=== PATIENT | female | born 1950 ===

== ENCOUNTER 2018-01-27 13:33 | Emergency (ER) | payer MEDICARE, OTHER ==
[2018-01-27 13:41] VITALS: TEMP 98.1
[2018-01-27] MEDS ORDERED: Sodium Chloride 0.9% 1,000 ML IV STA (13:51)
--- NOTE | 2018-01-27 14:11 | C.PDOC ---
History Of Present Illness 67 y/o female with a PMHx of kidney stones presents to the ED complaining of left lower back pain and LLQ abdominal pain since yesterday. Associated with nausea and vomiting last night. Patient reports the pain improved after taking Motrin last night, but then recurred this morning. Also complains of some dysuria. Otherwise she denies any fevers, chills, hematuria, or other complaints. Patient reports current symptoms are similar to prior episode of kidney stones over the summer. Time Seen by Provider: 01/27/18 13:43 Chief Complaint (Nursing): Abdominal Pain History Per: Patient History/Exam Limitations: no limitations Onset/Duration Of Symptoms: Days (x2) Current Symptoms Are (Timing): Still Present Location Of Pain/Discomfort: LLQ Radiation Of Pain To:: Flank Associated Symptoms: Nausea, Vomiting Past Medical History Reviewed: Historical Data, Nursing Documentation, Vital Signs Vital Signs: Last Vital Signs Temp 98.1 F 01/27/18 13:36 Pulse 88 01/27/18 13:36 Resp 19 01/27/18 13:36 BP 187/106 H 01/27/18 13:36 Pulse Ox 97 01/27/18 13:36 - Medical History PMH: HTN, Kidney Stones Surgical History: Family History: States: No Known Family Hx - Social History Hx Alcohol Use: No Hx Substance Use: No - Immunization History Hx Tetanus Toxoid Vaccination: No Hx Influenza Vaccination: Yes Hx Pneumococcal Vaccination: No Review Of Systems Except As Marked, All Systems Reviewed And Found Negative. Constitutional: Negative for: Fever, Chills Gastrointestinal: Positive for: Nausea, Vomiting, Abdominal Pain (Left-sided). Negative for: Diarrhea, Hematemesis Genitourinary: Positive for: Dysuria. Negative for: Frequency, Hematuria Musculoskeletal: Positive for: Back Pain (Left lower) Neurological: Negative for: Weakness, Numbness, Incoordination Physical Exam - Physical Exam Additional Physical Exam Comments: Constitutional: No acute distress. Head: Normocephalic. Atraumatic. Eyes: PERRL. ENT: Moist mucous membranes. Neck: Supple. Cardiovascular: Regular rate. Radial pulse 2+ bilaterally. Chest: No tenderness. Respiratory: Clear to auscultation bilaterally. GI: Soft. Nontender. Nondistended. Back: No CVA tenderness. Musculoskeletal: No tenderness or swelling of extremities. Skin: No rash. Neurologic: Alert, no focal deficit. ED Course And Treatment - Laboratory Results Result Diagrams: 01/27/18 14:09 01/27/18 14:09 O2 Sat by Pulse Oximetry: 97 (RA) Pulse Ox Interpretation: Normal Medical Decision Making Medical Decision Making: Initial Plan: --CMP --Lipase --CBC --UA --Urine culture --CT Abd/Pelvis --1 L of IV fluids --15 mg IV Toradol --[address] A/P resulted: Accession No. : [id number] Patient Name / ID : ROLANDA HERNANDEZ / [id number] Exam Date : 01/27/2018 14:38:50 ( Approved ) Study Comment : Sex / Age : F / 67Y Creator : Jung Perkins Dictator : Noe Vora MD Channel Machine Operator : Professor Of Surgery : Noe Vora MD Approver2 : Report Date : 01/27/2018 14:47:41 My Comment : This report is currently processing and HAS NOT BEEN OFFICIALLY SIGNED BY THE PHYSICIAN - ESTIMATED TIME OF APPROVAL IS 01/27/2018 15:43. Date of service: 01/27/2018 PROCEDURE: CT Abdomen and Pelvis. HISTORY: Left flank pain COMPARISON: No prior study available for comparison. TECHNIQUE: Contiguous helical/transaxial images of the abdomen and pelvis performed without oral or intravenous contrast material. Coronal and Sagittal reformats generated. Radiation dose: Total exam DLP = 297.97 mGy-cm. This CT exam was performed using one or more of the following dose reduction techniques: Automated exposure control, adjustment of the mA and/or kV according to patient size, and/or use of iterative reconstruction technique. FINDINGS: LOWER THORAX: Mild fibrosis/scarring seen both lung bases including the lingular and middle lobe regions. No evidence of effusion or basilar pneumothorax. Heart size is within range of normal. No significant pericardial effusion. LIVER: Liver exhibits normal size and attenuation pattern. No obvious hepatic mass collection or calcification seen on this noncontrast exam. No gross lesion or ductal dilatation. GALLBLADDER AND BILE DUCTS: The gallbladder appears incompletely distended. No evidence of intraluminal gallbladder calculi.. PANCREAS: Unremarkable. No mass. No ductal dilatation. SPLEEN: Exhibits normal size and attenuation without masses collections or calcifications.. ADRENALS: No adrenal lesions. KIDNEYS AND URETERS: Mild left-sided hydronephrosis with dilatation of the left renal collecting system, left renal pelvis and most of the left ureter from recently passed calculus that is located in the urinary bladder lumen or within the intramural portion of the left UVJ. Mid. There are some mild infiltration changes also s een in the left perinephric fat. No additional calculi. No evidence of right- sided hydronephrosis. BLADDER: Urinary bladder is incompletely distended which in part accounts for thick- walled appearance however correlation with urinalysis recommended to exclude cystitis. There is a tiny approximately 3.3 mm calculus within the left posterior inferior margin of the urinary bladder likely within the bladder lumen from recently passed left-sided calculus.. REPRODUCTIVE: The uterus appears unremarkable. APPENDIX: Normal appendix best seen on axial image series 3 image # [id number]. BOWEL: Evaluation of the bowel is limited due to the lack of oral contrast material. Stomach is incompletely distended. Visualized loops of small bowel exhibit normal contour and caliber. No evidence of acute mechanical small bowel obstruction. Stool and air seen throughout the large bowel. No evidence of definitive mural wall thickening. PERITONEUM: Unremarkable. No fluid collection. No free air. LYMPH NODES: Unremarkable. No enlarged lymph nodes. VASCULATURE: Unremarkable. No aortic aneurysm. No aortic atherosclerotic calcification or mural plaque present. BONES: Mild multilevel degenerative spondylosis of the lower thoracic and lumbar spine. Small central and bilateral disc bulges noted at the L4-L5 and L5-S1 levels.. OTHER FINDINGS: None. IMPRESSION: Recently passed approximately 3 mm calculus located either in the left posterior inferior urinary bladder lumen or within the intramural portion of the left UVJ with mild-moderate residual left-sided hydronephrosis. Small amount of infiltration changes seen in the left perinephric fat. Urinary bladder wall thickening likely due to incomplete distention however correlation with urinalysis recommended to exclude cystitis. Disposition - Disposition Referrals: Yasir Rodrigez Jr., MD [Staff Provider] - Disposition: HOME/ ROUTINE Disposition Time: 15:59 Condition: STABLE Prescriptions: Ciprofloxacin [Cipro] 500 mg PO BID #14 tab Ibuprofen [Motrin] 1 tab PO Q6 #30 tab Ondansetron ODT [Zofran ODT] 4 mg PO Q8 #12 odt Instructions: Kidney Stones in Adults Forms: [facility] ([place]ish) - Clinical Impression Clinical Impression: Kidney stone - Scribe Statement The provider has reviewed the documentation as recorded by the Rajwinder Brown Provider Attestation: All medical record entries made by the Rajwinder were at my direction and personally dictated by me. I have reviewed the chart and agree that the record accurately reflects my personal performance of the history, physical exam, medical decision making, and the department course for this patient. I have also personally directed, reviewed, and agree with the discharge instructions and disposition.
[2018-01-27 14:13] LABS: BASO # 0.1 K/uL (0.0-0.2); BASO % 0.7 % (0.0-2.0); EOS % 0.1 % (0.0-4.0); HEMOGLOBIN 14.5 g/dL (11.0-16.0); LYMPH # 2.1 K/uL (1.0-4.3); LYMPH % 19.2 % (20.0-40.0); MEAN CELL VOLUME 90.5 fL (81.0-99.0); MEAN CORPUSCULAR HEMOGLOBIN 31.5 pg (27.0-31.0); MEAN CORPUSCULAR HGB CONC 34.8 g/dL (33.0-37.0); MEAN PLATELET VOLUME 7.4 fL (7.2-11.7); MONO # 0.6 K/uL (0.0-0.8); MONO % 5.9 % (0.0-10.0); NEUT # 8.2 K/uL (1.8-7.0); NEUT % 74.1 % (50.0-75.0); RBC 4.59 Mil/uL (3.80-5.20); RED CELL DISTRIBUTION WIDTH 13.2 % (11.5-14.5); WHITE BLOOD COUNT 11.1 K/uL (4.8-10.8)
[2018-01-27] MEDS ORDERED: Sodium Chloride 0.9% 1,000 ML ONE (14:16)
[2018-01-27 14:35] LABS: ALB/GLOB RATIO 1.4 (1.0-2.1); ALBUMIN 4.8 g/dL (3.5-5.0); ALT/SGPT 24 U/L (9-52); AST/SGOT 27 U/L (14-36); BLOOD UREA NITROGEN 23 mg/dL (7-17); CALCIUM 9.4 mg/dl (8.6-10.4); GFR NON-AFRICAN AMERICAN > 60; LIPASE 321 U/L (23-300)
[2018-01-27 14:39] LABS: SQUAMOUS EPITHIAL 1 /hpf (0-5); URINE BILIRUBIN NEGATIVE (NEGATIVE); URINE BLOOD 3+ (NEGATIVE); URINE CLARITY Clear (Clear); URINE COLOR Yellow (YELLOW); URINE GLUCOSE (UA) NORMAL (Normal); URINE LEUKOCYTE ESTERASE 1+ Leu/uL (Negative); URINE PROTEIN 1+ mg/dL (NEGATIVE); URINE UROBILINOGEN NORMAL mg/dL (0.2-1.0)
--- NOTE | 2018-01-27 15:41 | CT ---
Date of service: 01/27/2018 PROCEDURE: CT Abdomen and Pelvis. HISTORY: Left flank pain COMPARISON: No prior study available for comparison. TECHNIQUE: Contiguous helical/transaxial images of the abdomen and pelvis performed without oral or intravenous contrast material. Coronal and Sagittal reformats generated. Radiation dose: Total exam DLP = 297.97 mGy-cm. This CT exam was performed using one or more of the following dose reduction techniques: Automated exposure control, adjustment of the mA and/or kV according to patient size, and/or use of iterative reconstruction technique. FINDINGS: LOWER THORAX: Mild fibrosis/scarring seen both lung bases including the lingular and middle lobe regions. No evidence of effusion or basilar pneumothorax. Heart size is within range of normal. No significant pericardial effusion. LIVER: Liver exhibits normal size and attenuation pattern. No obvious hepatic mass collection or calcification seen on this noncontrast exam. No gross lesion or ductal dilatation. GALLBLADDER AND BILE DUCTS: The gallbladder appears incompletely distended. No evidence of intraluminal gallbladder calculi.. PANCREAS: Unremarkable. No mass. No ductal dilatation. SPLEEN: Exhibits normal size and attenuation without masses collections or calcifications.. ADRENALS: No adrenal lesions. KIDNEYS AND URETERS: Mild left-sided hydronephrosis with dilatation of the left renal collecting system, left renal pelvis and most of the left ureter from recently passed calculus that is located in the urinary bladder lumen or within the intramural portion of the left UVJ. Mid. There are some mild infiltration changes also seen in the left perinephric fat. No additional calculi. No evidence of right-sided hydronephrosis. BLADDER: Urinary bladder is incompletely distended which in part accounts for thick-walled appearance however correlation with urinalysis recommended to exclude cystitis. There is a tiny approximately 3.3 mm calculus within the left posterior inferior margin of the urinary bladder likely within the bladder lumen from recently passed left-sided calculus.. REPRODUCTIVE: The uterus appears unremarkable. APPENDIX: Normal appendix best seen on axial image series 3 image # [id number]. BOWEL: Evaluation of the bowel is limited due to the lack of oral contrast material. Stomach is incompletely distended. Visualized loops of small bowel exhibit normal contour and caliber. No evidence of acute mechanical small bowel obstruction. Stool and air seen throughout the large bowel. No evidence of definitive mural wall thickening. PERITONEUM: Unremarkable. No fluid collection. No free air. LYMPH NODES: Unremarkable. No enlarged lymph nodes. VASCULATURE: Unremarkable. No aortic aneurysm. No aortic atherosclerotic calcification or mural plaque present. BONES: Mild multilevel degenerative spondylosis of the lower thoracic and lumbar spine. Small central and bilateral disc bulges noted at the L4-L5 and L5-S1 levels.. OTHER FINDINGS: None. IMPRESSION: Recently passed approximately 3 mm calculus located either in the left posterior inferior urinary bladder lumen or within the intramural portion of the left UVJ with mild-moderate residual left-sided hydronephrosis. Small amount of infiltration changes seen in the left perinephric fat. Urinary bladder wall thickening likely due to incomplete distention however correlation with urinalysis recommended to exclude cystitis.
[2018-01-27 16:11] VITALS: BP 173/97; PULSE 78; RESP 18
[2018-01-27 22:28] VITALS: O2SAT 97
== END 2018-01-27 16:12 | disposition home or self-care (01) ==
LOC: C.ER 13:33
DX: N20.0 Calculus of kidney (principal); Z87.442 Personal history of urinary calculi
CPT/HCPCS: 74176; 80053; 81001; 83690; 85025; 87086; 87181; 96361; 96374; 96375; 99285; J1885; J2405; J7030